=== PATIENT | male | born 1965 | race Caucasian/White ===

== ENCOUNTER 2016-11-02 02:44 | Emergency (ER) | payer SELFPAY ==
[~2016-11-02] VITALS: Ht 177.8 cm; Wt 71.0 kg
[2016-11-02] MEDS ORDERED: ACETAMINOPHEN 500MG TABLET PO ONE (07:45)
[2016-11-02] MEDS ORDERED: TETANUS, DIPHTHERIA, PERTUSSIS VAC/PF 0.5ML (>7YR OLD) IM ONE (08:00)
[2016-11-02] MEDS ORDERED: BACITRACIN ZINC OINT UDPKT TOP ONE (08:00)
[2016-11-02] MEDS ORDERED: LIDOCAINE HCL 1% 20ML VIAL (Pyxis) INJ MC ONE (08:00)
[2016-11-02 17:47] LABS: *AMPHETAMINES SCREEN URINE NEGATIVE (NEGATIVE); *BARBITURATES SCREEN URINE NEGATIVE (NEGATIVE); *BENZODIAZEPINES SCREEN URINE PRESUMTIVE POSITIVE (NEGATIVE); *COCAINE SCREEN URINE NEGATIVE (NEGATIVE); CANNABINOID URINE SCREEN PRESUMTIVE POSITIVE (NEGATIVE); ECSTASY MDMA SCREEN URINE CONF.TEST INDICATED (NEGATIVE); METHADONE URINE SCREEN PRESUMTIVE POSITIVE (NEGATIVE); OPIATES URINE SCREEN NEGATIVE (NEGATIVE); PHENCYCLIDINE URINE SCREEN NEGATIVE (NEGATIVE)
[2016-11-02 19:01] VITALS: BP 133/81
== END 2016-11-02 19:12 | disposition home or self-care (01) ==
LOC: ER 02:45
DX: S01.111A Laceration without foreign body of right eyelid and periocular area, initial encounter (principal); Y09 Assault by unspecified means; Y99.9 Unspecified external cause status; Y92.89 Other specified places as the place of occurrence of the external cause
CPT/HCPCS: 12011; 70450; 80305; 99285; J3490

== ENCOUNTER 2016-11-05 11:25 | Emergency (ER) | payer MEDICAID ==
[2016-11-05 14:14] VITALS: BP 109/82
[2016-11-05] MEDS ORDERED: ACETAMINOPHEN WITH CODEINE 300/30MG TABLET PO ONE (14:15)
== END 2016-11-05 14:34 | disposition home or self-care (01) ==
LOC: ER 14:01
DX: M54.5 Low back pain (principal); M54.2 Cervicalgia; F12.90 Cannabis use, unspecified, uncomplicated; F10.20 Alcohol dependence, uncomplicated; J45.909 Unspecified asthma, uncomplicated
CPT/HCPCS: 99283

== ENCOUNTER 2017-08-26 19:27 | Emergency (ER) | payer MEDICAID, OTHER ==
[~2017-08-26] VITALS: Ht 180.3 cm; Wt 78.0 kg
[2017-08-27 02:29] LABS: BASOPHILS % 0.8 % (0.0-2.0); EOSINOPHILS % 3.9 % (0.0-5.0); HEMATOCRIT. 39.3 % (42.0-52.0); HEMOGLOBIN. 13.3 g/dL (14.0-18.0); LYMPHOCYTES % 19.3 % (20.0-50.0); MEAN CORPUSCULAR HEMOGLOBIN 30.9 pg (28.0-32.0); MEAN CORPUSCULAR VOLUME 91.2 fL (80.0-94.0); MEAN PLATELET VOLUME 9.1 fl (7.4-10.4); MONOCYTES % 12.5 % (2.0-8.0); NEUTROPHILS % 63.5 % (40.0-76.0); PLATELET 122 x1000/uL (130-400); RED BLOOD CELL COUNT 4.31 mill/uL (4.7-6.1); RED CELL DISTRIBUTION WIDTH 13.1 % (11.6-14.6)
[2017-08-27 02:34] LABS: CHLORIDE 100 mEq/L (98-107)
[2017-08-27 02:39] LABS: ETHANOL BLOOD < 10 mg/dL
[2017-08-27 03:44] LABS: *AMPHETAMINES SCREEN URINE NEGATIVE (NEGATIVE); *BARBITURATES SCREEN URINE NEGATIVE (NEGATIVE); *BENZODIAZEPINES SCREEN URINE NEGATIVE (NEGATIVE); *COCAINE SCREEN URINE NEGATIVE (NEGATIVE); METHADONE URINE SCREEN PRESUMTIVE POSITIVE (NEGATIVE); OPIATES URINE SCREEN NEGATIVE (NEGATIVE)
[2017-08-27 03:45] LABS: CANNABINOID URINE SCREEN NEGATIVE (NEGATIVE); PHENCYCLIDINE URINE SCREEN NEGATIVE (NEGATIVE)
[2017-08-27 12:46] VITALS: BP 131/92
== END 2017-08-27 13:45 | disposition home or self-care (01) ==
LOC: ER 19:27
DX: F41.9 Anxiety disorder, unspecified (principal); F31.9 Bipolar disorder, unspecified; F20.9 Schizophrenia, unspecified; Z88.1 Allergy status to other antibiotic agents; Z88.8 Allergy status to other drugs, medicaments and biological substances
CPT/HCPCS: 36415; 80053; 80305; 80307; 80329; 85025; 99284; G0482